=== PATIENT | female | born 1995 | race African-American/Black ===

== ENCOUNTER 2017-05-21 14:00 | Emergency (ER) | payer MEDICAID ==
[~2017-05-21] VITALS: Ht 157.5 cm; Wt 75.0 kg
[2017-05-21 14:01] VITALS: BP 136/70; PULSE 106; RESP 16; TEMP 98.2; O2SAT 99
--- NOTE | 2017-05-21 14:41 | PD ---
HPI Chief Complaint: Related Problem Time Seen by Provider: 14:27 Travel History International Travel<30 days: No Contact w/Intl Traveler<30days: No Traveled to known affect area: No History of Present Illness HPI The patient was seen and examined in the presence of the nurse. This patient reports that she believes she is . She had 2 positive home test. She complains of vaginal spotting for 2 days. She is not having pelvic pain or presyncopal symptoms. No vaginal discharge. Denies fever. Has not had any care. Symptoms severity is mild. No alleviating factors. No exacerbating factors PFSH Past Medical History ?: Social History Alcohol Use: No Tobacco Use: No Substance Use: No Allergies-Medications (Allergen,Severity, Reaction): Coded Allergies: No Known Allergies (Verified Allergy, Unknown, 05/21/17) Reported Meds & Prescriptions Reported Meds & Active Scripts Active No Active Prescriptions or Reported Medications Review of Systems General / Constitutional: No: Fever Eyes: No: Visual changes HENT: No: Headaches Cardiovascular: No: Chest Pain or Discomfort Respiratory: No: Shortness of Breath Gastrointestinal: No: Abdominal Pain Genitourinary: Positive: Vaginal Bleeding, No: Dysuria Musculoskeletal: No: Pain Skin: No Rash Neurologic: No: Weakness Psychiatric: No: Depression Endocrine: No: Polydipsia Hematologic/Lymphatic: No: Easy Bruising Physical Exam Narrative GENERAL: Well-nourished, well-developed patient in no apparent distress. SKIN: Focused skin assessment reveals no rash and nodules. Skin is Warm and dry. HEAD: Atraumatic. Normocephalic. EYES: Pupils equal and round. No scleral icterus. No injection or drainage. ENT: No nasal bleeding or discharge. Mucous membranes pink and moist. NECK: Trachea midline. No JVD. CARDIOVASCULAR: Regular rate and rhythm. No murmur appreciated. RESPIRATORY: No accessory muscle use. Clear to auscultation. Breath sounds equal bilaterally. GASTROINTESTINAL: Abdomen soft, non-tender, nondistended. Hepatic and splenic margins not palpable. MUSCULOSKELETAL: No obvious deformities. No clubbing. No cyanosis. No edema. NEUROLOGICAL: Awake and alert. No obvious cranial nerve deficits. Motor grossly within normal limits. Normal speech. PSYCHIATRIC: Appropriate mood and affect; insight and judgment normal. Data Data Last Documented VS Vital Signs Date Time Temp Pulse Resp B/P (MAP) Pulse Ox O2 Delivery O2 Flow Rate FiO2 05/21/17 14:20 16 05/21/17 14:01 98.2 106 136/70 (92) 99 Orders Orders Beta Hcg (Quant/Titer) (05/21/17 14:39) Complete Blood Count With Diff (05/21/17 14:39) Complete Rh (05/21/17 14:39) Us Pelvis Preg W Transvaginal (05/21/17 ) Labs Laboratory Tests Test 05/21/17 14:40 White Blood Count 8.6 TH/MM3 Red Blood Count 3.75 MIL/MM3 Hemoglobin 11.7 GM/DL Hematocrit 33.8 % Mean Corpuscular Volume 90.1 FL Mean Corpuscular Hemoglobin 31.1 PG Mean Corpuscular Hemoglobin Concent 34.6 % Red Cell Distribution Width 13.0 % Platelet Count 257 TH/MM3 Mean Platelet Volume 7.8 FL Neutrophils (%) (Auto) 59.4 % Lymphocytes (%) (Auto) 29.9 % Monocytes (%) (Auto) 8.9 % Eosinophils (%) (Auto) 1.3 % Basophils (%) (Auto) 0.5 % Neutrophils # (Auto) 5.1 TH/MM3 Lymphocytes # (Auto) 2.6 TH/MM3 Monocytes # (Auto) 0.8 TH/MM3 Eosinophils # (Auto) 0.1 TH/MM3 Basophils # (Auto) 0.0 TH/MM3 CBC Comment DIFF FINAL Differential Comment Human Chorionic Gonadotropin, Quant 8722 MIU/ML MDM Medical Decision Making Medical Screen Exam Complete: Yes Emergency Medical Condition: Yes Medical Record Reviewed: Yes Differential Diagnosis Ectopic , threatened , miscarriage Narrative Course I have reviewed the patient's electronic medical record. Rh reveals a positive blood type CBC is normal Beta hCG is 8700 I did a bedside transabdominal ultrasound but I cannot definitively identify an intrauterine fetus I've ordered formal radiology transvaginal ultrasound Case will be checked out to the 5 PM physician to assist with disposition Scripts No Active Prescriptions or Reported Meds Jeremy Pagan MD May 21, 2017 14:41
[2017-05-21 15:04] LABS: AUTOMATED NEUTROPHIL # 5.1 TH/MM3 (1.8-7.7); BASOPHIL % 0.5 % (0.0-2.0); EOSINOPHIL # 0.1 TH/MM3 (0-0.4); EOSINOPHIL % 1.3 % (0.0-4.0); HEMATOCRIT 33.8 % (35.0-46.0); HEMOGLOBIN 11.7 GM/DL (11.6-15.3); LYMPH % 29.9 % (9.0-44.0); LYMPHOCYTE # 2.6 TH/MM3 (1.0-4.8); MEAN CELL VOLUME 90.1 FL (80.0-100.0); MEAN CORPUSCULAR HEMOGLOBIN 31.1 PG (27.0-34.0); MEAN CORPUSCULAR HGB CONC 34.6 % (32.0-36.0); MEAN PLATELET VOLUME 7.8 FL (7.0-11.0); MONO % 8.9 % (0.0-8.0); MONOCYTE # 0.8 TH/MM3 (0-0.9); NEUT % 59.4 % (16.0-70.0); PLATELET COUNT 257 TH/MM3 (150-450); RED BLOOD COUNT 3.75 MIL/MM3 (4.00-5.30); WHITE BLOOD COUNT 8.6 TH/MM3 (4.0-11.0)
--- NOTE | 2017-05-21 16:53 | RADRPT ---
EXAM DATE/TIME: 05/21/2017 16:05 [facility] COMPARISON: No previous studies available for comparison. INDICATIONS : Bleeding. LAB(S): Beta-hC MEDICAL HISTORY : None. SURGICAL HISTORY : None. ENCOUNTER: Initial ACUITY: 3 days PAIN SCORE: 0/10 LOCATION: Bilateral pelvis MEASUREMENTS: UTERUS: 7.5 x 5.4 x 4.3 cm ENDOMETRIAL STRIPE: 14 mm RIGHT OVARY: 2.7 x 1.5 x 1.6 cm LEFT OVARY: 2.9 x 2.4 x 2.0 cm FREE FLUID: None CROWN RUMP LENGTH: 1.0 = 5 WKS 0 DAYS FINDINGS: UTERUS: Gestational sac and pole noted. No heart tones. RIGHT OVARY: Ovary contains no mass or significant cystic lesion. LEFT OVARY: Ovary contains no mass or significant cystic lesion. MISCELLANEOUS: No free fluid. CONCLUSION: 1. Intrauterine . No heart rate detected at this time and may be too early for detection. Cl ose interval followup recommended. 2. Otherwise unremarkable pelvic sonogram. Manjeet Marquez MD on May 21, 2017 at 16:49 Board Certified Radiologist. This report was verified electronically.
== END 2017-05-21 17:16 | disposition home or self-care (01) ==
LOC: NEPD 14:00
DX: O20.0 Threatened abortion (principal)
CPT/HCPCS: 76801; 76817; 84702; 85025; 86901; 99284

== ENCOUNTER 2017-06-17 18:44 | Emergency (ER) | payer MEDICAID, OTHER ==
[~2017-06-17] VITALS: Ht 160 cm; Wt 65.0 kg
[2017-06-17 18:50] VITALS: BP 120/75; PULSE 89; RESP 16; TEMP 99.4; O2SAT 100
--- NOTE | 2017-06-17 19:47 | PD ---
HPI . Bleeding in Chief Complaint: Related Problem Time Seen by Provider: 19:06 Travel History International Travel<30 days: No Contact w/Intl Traveler<30days: No Traveled to known affect area: No History of Present Illness HPI This patient presents to us by EVAC with the chief complaint of heavy bleeding in . She reports she is about 10 weeks by dates. She states that she was having a verbal altercation with her boyfriend when her hands suddenly became wet. She discovered that the pants were wet because of heavy bleeding. She denies any pain. She did not see any clots or tissue or anything that looked like a baby. Rescue was called and she was brought here. EMS reports approximately 200 cc of blood at the scene. She states that she is not feeling lightheaded or dizzy. PFSH Past Medical History Medical History: Denies Significant Hx Tetanus Vaccination: Unknown Influenza Vaccination: No ?: LMP: 04/07/17 Past Surgical History Surgical History: No Previous Surgery Social History Alcohol Use: No Tobacco Use: No Substance Use: No Allergies-Medications (Allergen,Severity, Reaction): Coded Allergies: No Known Allergies (Verified Allergy, Unknown, 06/17/17) Reported Meds & Prescriptions Reported Meds & Active Scripts Active No Active Prescriptions or Reported Medications Review of Systems Except as stated in HPI: all other systems reviewed are Neg Physical Exam Narrative GENERAL: Awake and alert and in no acute distress. SKIN: Warm and dry. HEAD: Normocephalic/atraumatic. EYES: Pupils are equal. Extraocular movements are intact. Distally NECK: Normal range of motion. CARDIOVASCULAR: Regular rate and rhythm. RESPIRATORY: Nonlabored respirations. The : Blood streaked down her inner thighs. She has clots at the introitus. However, on speculum exam, there is very little blood in the vaginal vault. Os is closed. MUSCULOSKELETAL: Atraumatic. NEUROLOGICAL: Nonfocal. PSYCHIATRIC: Appropriate mood and affect. Data Data Last Documented VS Vital Signs Date Time Temp Pulse Resp B/P (MAP) Pulse Ox O2 Delivery O2 Flow Rate FiO2 06/17/17 20:28 87 16 122/66 (84) 88 16 127/66 (86) 86 16 125/70 (88) 06/17/17 18:50 99.4 100 Orders Orders Complete Blood Count With Diff (06/17/17 19:15) Beta Hcg (Quant/Titer) (06/17/17 19:15) Orthostatic Vital Signs (06/17/17 19:15) ^ Saline Lock (06/17/17 19:15) Us Pelvis (Ques Preg/Ectopic) (06/17/17 19:15) Labs Laboratory Tests Test 06/17/17 19:25 White Blood Count 11.5 TH/MM3 Red Blood Count 3.58 MIL/MM3 Hemoglobin 10.8 GM/DL Hematocrit 32.4 % Mean Corpuscular Volume 90.4 FL Mean Corpuscular Hemoglobin 30.0 PG Mean Corpuscular Hemoglobin Concent 33.2 % Red Cell Distribution Width 13.3 % Platelet Count 279 TH/MM3 Mean Platelet Volume 8.2 FL Neutrophils (%) (Auto) 75.0 % Lymphocytes (%) (Auto) 17.6 % Monocytes (%) (Auto) 6.2 % Eosinophils (%) (Auto) 1.0 % Basophils (%) (Auto) 0.2 % Neutrophils # (Auto) 8.6 TH/MM3 Lymphocytes # (Auto) 2.0 TH/MM3 Monocytes # (Auto) 0.7 TH/MM3 Eosinophils # (Auto) 0.1 TH/MM3 Basophils # (Auto) 0.0 TH/MM3 CBC Comment DIFF FINAL Differential Comment Human Chorionic Gonadotropin, Quant 36182 MIU/ML MDM Medical Decision Making Medical Screen Exam Complete: Yes Emergency Medical Condition: Yes Medical Record Reviewed: Yes (blood type is A+) Differential Diagnosis Differential diagnosis of bleeding in includes but is not limited to physiologic bleeding, spontaneous AB, ectopic , placenta previa Narrative Course This patient presents complaining with bleeding at about 10 weeks of . No associated pain. She denies any signs or symptoms worrisome for hemorrhagic shock such as feeling weak or dizzy or having shortness of breath or chest pain. I will check her blood count and her quantitative hCG. Orthostatics will be checked. An ultrasound is pending. CBC Diagram 06/17/17 19:25 quant 65, 858 Orthostatics are negative. Verbal ultrasound report is a viable 9 week 5 day intrauterine with heart rate of 159. The patient will be discharged home with reassurance. She needs to establish herself with an manager floral. Diagnosis Primary Impression: Bleeding in early Patient Instructions: First Trimester Vaginal Bleed (ED), General Instructions Scripts No Active Prescriptions or Reported Meds Disposition: 01 DISCHARGE HOME Condition: Concepcion Mccullough MD Jun 17, 2017 19:47
[2017-06-17 20:19] LABS: AUTOMATED NEUTROPHIL # 8.6 TH/MM3 (1.8-7.7); BASOPHIL % 0.2 % (0.0-2.0); EOSINOPHIL # 0.1 TH/MM3 (0-0.4); HEMATOCRIT 32.4 % (35.0-46.0); HEMOGLOBIN 10.8 GM/DL (11.6-15.3); LYMPH % 17.6 % (9.0-44.0); MEAN CELL VOLUME 90.4 FL (80.0-100.0); MEAN CORPUSCULAR HGB CONC 33.2 % (32.0-36.0); MEAN PLATELET VOLUME 8.2 FL (7.0-11.0); MONO % 6.2 % (0.0-8.0); MONOCYTE # 0.7 TH/MM3 (0-0.9); PLATELET COUNT 279 TH/MM3 (150-450); RED BLOOD COUNT 3.58 MIL/MM3 (4.00-5.30); RED CELL DISTRIBUTION WIDTH 13.3 % (11.6-17.2); WHITE BLOOD COUNT 11.5 TH/MM3 (4.0-11.0)
[2017-06-17 20:28] VITALS: BP_SYST 122; BP_SYST 125; BP_SYST 127; BP_DIAS 66; BP_DIAS 70; RESP 16
--- NOTE | 2017-06-17 21:35 | RADRPT ---
EXAM DATE/TIME: 06/17/2017 20:49 [facility] COMPARISON: US PELVIS, PREG, W/TRANSVAGINAL, May 21, 2017, 16:05. INDICATIONS : Bleeding. LAB(S): Beta-hC MEDICAL HISTORY : None. SURGICAL HISTORY : None. ENCOUNTER: Subsequent ACUITY: 2 days PAIN SCORE: 0/10 LOCATION: Bilateral pelvis MEASUREMENTS: UTERUS: 10.6 x 6.8 x 5.8 cm ENDOMETRIAL STRIPE: >20 mm RIGHT OVARY: 3.4 x 1.7 x 2.0 cm LEFT OVARY: 3.4 x 2.1 x 2.1 cm FREE FLUID: No CROWN RUMP LENGTH: 3.0 = 9 WKS 6 DAYS FHR: 169 BPM FINDINGS: UTERUS: The myometrium has homogeneous echotexture without mass. There is a single intrauterine gestational sac present. Yolk sac is visualized. M-mode Doppler documents heart rate. RIGHT OVARY: Ovary contains no mass or significant cystic lesion. LEFT OVARY: Ovary contains no mass or significant cystic lesion. MISCELLANEOUS: No free fluid. CONCLUSION: No acute abnormality is identified. There is a single intrauterine gestation present with estimated a ge of 9 weeks and 6 days. Normal heart rate of 169 beats per minute is documented. Robert Degroot MD on June 17, 2017 at 21:30 Board Certified Radiologist. This report was verified electronically.
== END 2017-06-17 22:08 | disposition home or self-care (01) ==
LOC: NEPE 18:44
DX: O46.91 Antepartum hemorrhage, unspecified, first trimester (principal); Z3A.09 9 weeks gestation of pregnancy; Z34.91 Encounter for supervision of normal pregnancy, unspecified, first trimester
CPT/HCPCS: 76700; 84702; 85025